=== PATIENT | female | born 1995 | race African-American/Black ===

== ENCOUNTER 2021-04-11 07:32 | Day surgery (SDC) | payer OTHER ==
[2021-04-11] MEDS ORDERED: hydrALAZINE 20 MG/ML VIAL SLOW IVP PRN (09:23)
== END 2021-04-11 10:35 | disposition home or self-care (01) ==
LOC: CSHLD/OP 07:32
PROVIDERS: ATTEND Family Medicine
DX: O47.1 False labor at or after 37 completed weeks of gestation (principal); O99.013 Anemia complicating pregnancy, third trimester; O99.213 Obesity complicating pregnancy, third trimester; O34.219 Maternal care for unspecified type scar from previous cesarean delivery; Z3A.38 38 weeks gestation of pregnancy; Z79.82 Long term (current) use of aspirin; Z79.899 Other long term (current) drug therapy
CPT/HCPCS: 99283